=== PATIENT | female | born 1985 | race Caucasian/White ===

== ENCOUNTER 2016-06-03 07:52 | Emergency (ER) | payer MEDICAID, OTHER ==
[~2016-06-03] VITALS: Ht 165.1 cm; Wt 85.0 kg
[~2016-06-03 07:52] MED LIST: IBUP600 PO; IRON18TA2 PO; OXYC1SOL5 PO; PREN1TAB30 PO
[2016-06-03 07:54] VITALS: BP 124/87; PULSE 96; RESP 20; TEMP 98.2; O2SAT 99
[2016-06-03 10:09] VITALS: BP 119/80; PULSE 88; RESP 18; O2SAT 99
[2016-06-03] MEDS ORDERED: SODIUM CHLORIDE 0.9% FLUSH 5 ML FLUSH IVF PRN (10:15)
[2016-06-03] MEDS ORDERED: MORPHINE SULFATE 4 MG/ML INJ IV PUSH ONE (10:15)
[2016-06-03] MEDS ORDERED: ONDANSETRON HCL 4 MG/2 ML VIAL IVP ONE (10:15)
[2016-06-03] MEDS ORDERED: KETOROLAC TROMETHAMINE 30 MG/ML (IVP) VIAL IVP ONE (10:15)
[2016-06-03 10:20] VITALS: RESP 18; O2SAT 100
[2016-06-03 10:59] LABS: BACTERIA, URINE FEW /hpf; BLOOD, URINE SMALL (NEG); COMMENT (UR) CULTURE INDICATED; CULTURE IF INDICATED CULTURE INDICATED; GLUCOSE,URINE NEG (NEG); HYALINE CAST, URINE 1 /lpf (RARE); KETONE, URINE NEG (NEG); MUCUS URINE FEW /lpf (OCC); NITRITE,URINE NEG (NEG); SQUAMOUS EPITHELIAL CELL URINE 5 /hpf (0-5); URINE COLOR YELLOW (YELLW/STRAW)
[2016-06-03] MEDS ORDERED: cefTRIAXone INJ 1,000 MG in SODIUM CHLORIDE 0.9% INJ 100 ML IV ONE (11:15)
--- NOTE | 2016-06-03 11:16 | RADRPT ---
EXAM DATE/TIME: 06/03/2016 10:47 [facility] COMPARISON: No previous studies available for comparison. INDICATIONS : Bilateral flank pain. ORAL CONTRAST: No oral contrast ingested. RADIATION DOSE: 26.11 CTDIvol (mGy) MEDICAL HISTORY : Gallstones. SURGICAL HISTORY : None. ENCOUNTER: Initial ACUITY: 2 days PAIN SCALE: 6/10 LOCATION: Bilateral flank TECHNIQUE: Volumetric scanning of the abdomen and pelvis was performed. Using automated exposure control and ad justment of the mA and/or kV according to patient size, radiation dose was kept as low as reasonably achievable to obtain optimal diagnostic quality images. FINDINGS: The lung bases are clear. The liver is free of focal defects. Spleen, pancreas and adrenal glands a re unremarkable. There are no renal calculi. There are no calcifications along the expected course of either the right ureter or the left ureter. Multiple phleboliths are present in the pelvis. Region of the cecum and terminal ileum are unremarkable. There is a normal appearing appendix. Pelvic contents show a somewhat prominent presumably fibroid uterus. There is trace fluid in the pel vis. CONCLUSION: 1. Negative for renal stone or obstruction. 2. Trace fluid in the pelvis. 3. Fibroid uterus without adnexal mass. Derrell Roche MD FACR on June 03, 2016 at 11:02 Board Certified Radiologist. This report was verified electronically.
[2016-06-03 11:24] VITALS: BP 115/80; PULSE 71; RESP 18; O2SAT 100
[2016-06-03] MEDS ORDERED: PROM25TA5 PO (11:31)
[2016-06-03] MEDS ORDERED: CEPH-460 PO (11:31)
[2016-06-03] MEDS ORDERED: PYRI200T4 PO (11:31)
--- NOTE | 2016-06-03 11:31 | PD ---
HPI Chief Complaint: Flank/Kidney Pain Time Seen by Provider: 10:06 Travel History International Travel<30 days: No Contact w/Intl Traveler<30days: No Traveled to known affect area: No History of Present Illness HPI 31-year-old female here with complaint of flank pain. For the last 2 days patient has had bilateral flank pain, left greater than right that radiates slightly into the abdomen. Associated nausea but no significant vomiting. Denies any abnormal bowel movements. Her last nausea. Was approximately one month ago, she does not believe she could be . No abnormal vaginal bleeding or discharge. She notes dysuria at the end stream and small-volume frequent urination. No history of ureterolithiasis, pyelonephritis. No fevers or chills. PFSH Past Medical History Anemia: Yes Gastrointestinal Disorders: Yes (gallstones) Influenza Vaccination: Yes ?: Not : 6 Para: 5 Miscarriage: 0 : 0 Social History Alcohol Use: No Tobacco Use: No Substance Use: No Allergies-Medications (Allergen,Severity, Reaction): Coded Allergies: No Known Allergies (Unverified , 07/30/14) Reported Meds & Prescriptions Reported Meds & Active Scripts Active Oxycodone/Acetaminophen 5 mg/325 mg 1 Tab Tab 1 Tab PO Q4H PRN Motrin 600 Mg Tab (Ibuprofen) 600 Mg Tab 600 Mg PO Q6H PRN Vitamins ( Vit W/ Ferrous Fumara) 1 Tab Tab 1 Tab PO DAILY Reported Iron (Ferrous Sulfate) 18 Mg Tab 18 Mg PO Review of Systems Except as stated in HPI: all other systems reviewed are Neg Physical Exam Narrative GENERAL: Well-appearing female in mild distress SKIN: Warm and dry. HEAD: Normocephalic. EYES: No scleral icterus. No injection or drainage. ENT: Mucous membranes pink and moist. NECK: Supple CARDIOVASCULAR: Regular rate and rhythm. No murmur appreciated. RESPIRATORY: No accessory muscle use. Clear to auscultation. Breath sounds equal bilaterally. GASTROINTESTINAL: Abdomen soft, left-sided flank tenderness to palpation without rebound or guarding. Abdomen is nontender, nondistended. MUSCULOSKELETAL: Normal gait NEUROLOGICAL: Awake and alert. Normal speech. PSYCHIATRIC: Appropriate mood and affect; insight and judgment normal. Data Data Last Documented VS Vital Signs Date Time Temp Pulse Resp B/P Pulse Ox O2 Delivery O2 Flow Rate FiO2 06/03/16 11:24 71 18 115/80 100 Room Air 06/03/16 07:54 98.2 Orders Urinalysis - C+S If Indicated (06/03/16 09:59) Ct Abd/Pel W/O Iv Contrast (06/03/16 10:09) Iv Access Insert/Monitor (06/03/16 10:09) Ecg Monitoring (06/03/16 10:09) Oximetry (06/03/16 10:09) Morphine Inj (Morphine Inj) (06/03/16 10:15) Ondansetron Inj (Zofran Inj) (06/03/16 10:15) Sodium Chloride 0.9% Flush (Ns Flush) (06/03/16 10:15) Ketorolac Inj (Toradol Inj) (06/03/16 10:15) Ed Urine Pregnancytest Poc (06/03/16 10:09) Urine Culture (06/03/16 10:04) Ceftriaxone Inj (Rocephin Inj) (06/03/16 11:15) Labs Laboratory Tests Test 06/03/16 10:04 Urine Color YELLOW Urine Turbidity HAZY Urine pH 7.0 Urine Specific [place] 1.016 Urine Protein TRACE mg/dL Urine Glucose (UA) NEG mg/dL Urine Ketones NEG mg/dL Urine Occult Blood SMALL Urine Nitrite NEG Urine Bilirubin NEG Urine Urobilinogen LESS THAN 2.0 MG/DL Urine Leukocyte Esterase LARGE Urine RBC 11 /hpf Urine WBC 148 /hpf Urine Squamous Epithelial 5 /hpf Cells Urine Bacteria FEW /hpf Urine Hyaline Casts 1 /lpf Urine Mucus FEW /lpf Microscopic Urinalysis Comment CULTURE INDICATED MDM Medical Decision Making Medical Screen Exam Complete: Yes Emergency Medical Condition: Yes Medical Record Reviewed: Yes Differential Diagnosis 31-year-old female with bilateral flank pain, left greater than right radiating to the abdomen with urinary symptoms. Differential includes UTI, pyelonephritis , ureterolithiasis. Her abdominal examination is benign making peritoneal pathology unlikely. Narrative Course Patient placed on monitor, IV established. Given 4 mg morphine, 4 mg Zofran. Urine test was negative. Urinalysis positive with leukocyte esterase , white cells and bacteria. CT of the abdomen and pelvis was negative for any evidence of stone, free fluid. She does have fibroid uterus without adnexal mass. Given her dirty urinalysis she was treated with Rocephin for pyelonephritis only discharged home with flex. Diagnosis Primary Impression: Pyelonephritis Referrals: Primary Care Physician as needed Additional Instructions: Pyridium as needed for urinary pain. Finish antibiotics as prescribed. Antiemetics as needed. Follow-up with primary care provider if symptoms persist and return to the ER for the warning signs discussed. Med/Other Pt SpecificInfo: Prescription(s) given Scripts Promethazine (Phenergan)25 Mg Tab25 Mg PO Q6H PRN (Nausea/Vomiting) #6 TAB Ref 0 Prov:Belle Rosado MD 06/03/16 Phenazopyridine (Pyridium)200 Mg [id number] Mg PO Q8H PRN (DYSURIA) #6 TAB Ref 0 Prov:Belle Rosado MD 06/03/16 Cephalexin (Keflex)500 Mg [id number] Mg PO Q6H 7 Days Ref 0 Prov:Belle Rosado MD 06/03/16 Disposition: 01 DISCHARGE HOME Condition: Stable Belle Rosado MD Jun 03, 2016 11:31
[2016-06-03] MEDS ORDERED: LIDOCAINE VISCOUS 2% SOLN 15 ML UDC PO ONE (11:45)
[2016-06-03] MEDS ORDERED: ALUMINUM/MAGNESIUM/SIMETH 30 ML CUP PO ONE (11:45)
== END 2016-06-03 11:33 | disposition home or self-care (01) ==
LOC: NEPE 07:52
DX: N12 Tubulo-interstitial nephritis, not specified as acute or chronic (principal); D64.9 Anemia, unspecified; B95.7 Other staphylococcus as the cause of diseases classified elsewhere
CPT/HCPCS: 74176; 81001; 84703; 86403; 87077; 87086; 87186; 96374; 96375; 99284; J0696; J1885; J2270; J2405

== ENCOUNTER 2016-08-10 13:10 | Emergency (ER) | payer MEDICAID, OTHER ==
[~2016-08-10] VITALS: Ht 165.1 cm; Wt 85.0 kg
[~2016-08-10 13:10] MED LIST changes: +CEPH-460 PO; +PROM25TA5 PO; +PYRI200T4 PO
[2016-08-10 13:12] VITALS: BP 123/88; PULSE 80; RESP 20; TEMP 98; O2SAT 99
[2016-08-10] MEDS ORDERED: ACETAMINOPHEN 325 MG TAB PO ONE (13:45)
[2016-08-10] MEDS ORDERED: ALPRAZolam 1 MG TAB PO ONE (13:45)
--- NOTE | 2016-08-10 13:46 | PD ---
HPI Chief Complaint: Anxiety Time Seen by Provider: 13:35 Travel History International Travel<30 days: No Contact w/Intl Traveler<30days: No Traveled to known affect area: No History of Present Illness HPI 31-year-old female with history of anxiety presents for evaluation. She reports that yesterday her mother's life support mechanisms were discontinued and today her mother . The entire incident has been causing the patient a lot of stress and anxiety. Since yesterday she is having some sharp left-sided chest pain as well as headaches. Symptoms seem to be worse when she is crying and upset and anxious. No alleviating factors. She denies any desire to harm herself or anyone else. No drug use. She reports that several years ago she was treated with a medication for anxiety but ever since she went to [place] she has not been on any medications help with her anxiety symptoms. She has no other complaints. PFSH Past Medical History Anemia: Yes Asthma: Yes Gastrointestinal Disorders: Yes (gallstones) Respiratory: Yes (ASTHMA) ?: Not LMP: 08/08/16 : 6 Para: 5 Miscarriage: 0 : 0 Social History Alcohol Use: No Tobacco Use: No Substance Use: No Allergies-Medications (Allergen,Severity, Reaction): Coded Allergies: No Known Allergies (Unverified , 08/10/16) Reported Meds & Prescriptions Reported Meds & Active Scripts Active Xanax (Alprazolam) 0.5 Mg Tab 0.5 Mg PO Q8H PRN Phenergan (Promethazine HCl) 25 Mg Tab 25 Mg PO Q6H PRN Pyridium (Phenazopyridine HCl) 200 Mg Tab 200 Mg PO Q8H PRN Keflex (Cephalexin) 500 Mg Cap 500 Mg PO Q6H 7 Days Oxycodone/Acetaminophen 5-325 mg/5Ml (Oxycodone W/ Acetaminophen) 1 Tab Tab 1 Tab PO Q4H PRN Motrin 600 Mg Tab (Ibuprofen) 600 Mg Tab 600 Mg PO Q6H PRN Vitamin 27-0.8 mg ( Vit W/ Ferrous Fumara) 1 Tab Tab 1 Tab PO DAILY Reported Iron (Ferrous Sulfate) 18 Mg Tab 18 Mg PO Review of Systems Except as stated in HPI: all other systems reviewed are Neg Physical Exam Narrative GENERAL: This is a well-developed well-nourished female who is anxious and tearful on initial examination. SKIN: Warm and dry. HEAD: Atraumatic. Normocephalic. EYES: Pupils equal and round. No scleral icterus. No injection or drainage. ENT: No nasal bleeding or discharge. Mucous membranes pink and moist. NECK: Trachea midline. No JVD. CARDIOVASCULAR: Regular rate and rhythm. No murmur appreciated. RESPIRATORY: No accessory muscle use. Clear to auscultation. Breath sounds equal bilaterally. GASTROINTESTINAL: Abdomen soft, non-tender, nondistended. Hepatic and splenic margins not palpable. MUSCULOSKELETAL: No obvious deformities. No edema. NEUROLOGICAL: Awake and alert. No obvious cranial nerve deficits. Motor grossly within normal limits. Normal speech. PSYCHIATRIC: Anxious, tearful. Data Data Last Documented VS Vital Signs Date Time Temp Pulse Resp B/P Pulse Ox O2 Delivery O2 Flow Rate FiO2 08/10/16 13:12 98.0 80 20 123/88 99 Room Air Orders Electrocardiogram (08/10/16 13:42) Basic Metabolic Panel (Bmp) (08/10/16 13:42) Ckmb (Isoenzyme) Profile (08/10/16 13:42) Complete Blood Count With Diff (08/10/16 13:42) Magnesium (Mg) (08/10/16 13:42) Troponin I (08/10/16 13:42) Chest, Single Ap (08/10/16 13:42) Acetaminophen (Tylenol) (08/10/16 13:45) Alprazolam (Xanax) (08/10/16 13:45) Labs Laboratory Tests Test 08/10/16 13:05 White Blood Count 4.4 TH/MM3 Red Blood Count 4.00 MIL/MM3 Hemoglobin 11.0 GM/DL Hematocrit 34.6 % Mean Corpuscular Volume 86.7 FL Mean Corpuscular Hemoglobin 27.6 PG Mean Corpuscular Hemoglobin 31.9 % Concent Red Cell Distribution Width 13.9 % Platelet Count 187 TH/MM3 Mean Platelet Volume 10.0 FL Neutrophils (%) (Auto) 56.7 % Lymphocytes (%) (Auto) 24.0 % Monocytes (%) (Auto) 11.7 % Eosinophils (%) (Auto) 7.0 % Basophils (%) (Auto) 0.6 % Neutrophils # (Auto) 2.5 TH/MM3 Lymphocytes # (Auto) 1.1 TH/MM3 Monocytes # (Auto) 0.5 TH/MM3 Eosinophils # (Auto) 0.3 TH/MM3 Basophils # (Auto) 0.0 TH/MM3 CBC Comment DIFF FINAL Differential Comment Sodium Level 140 MEQ/L Potassium Level 4.0 MEQ/L Chloride Level 105 MEQ/L Carbon Dioxide Level 27.8 MEQ/L Anion Gap 7 MEQ/L Blood Urea Nitrogen 12 MG/DL Creatinine 0.62 MG/DL Estimat Glomerular Filtration 112 ML/MIN Rate Random Glucose 98 MG/DL Calcium Level 8.4 MG/DL Magnesium Level 2.0 MG/DL Total Creatine Kinase 85 U/L Troponin I LESS THAN 0.02 NG/ML MDM Medical Decision Making Medical Screen Exam Complete: Yes Emergency Medical Condition: Yes Medical Record Reviewed: Yes Interpretation(s) EKG sinus rhythm Differential Diagnosis Adjustment reaction, anxiety, panic disorder, pulmonary embolism, acute coronary syndrome, spontaneous pneumothorax Narrative Course This is a 31-year-old female whose mother today. She is experiencing severe anxiety with associated chest pains and headache. I feel that her symptoms are secondary to her anxiety. She is otherwise young and healthy woman with no risk factors for coronary artery disease. Plan is for basic lab work, EKG, chest x-ray. She will be given Xanax and Tylenol here. She is currently on her menstrual period and denies any chance of . Lab work is unremarkable. Her hemoglobin was 11 which is in line with her previous hemoglobin levels. Cardiac enzymes are negative. She feels improved after the administration of Tylenol and Xanax. She will be discharged with a short course of Xanax and advised to follow-up with her primary care physician. Discussed with my attending who agrees with plan of care. Diagnosis Primary Impression: Anxiety Additional Impression: Grieving Additional Instructions: Medication as needed for anxiety. Follow closely with primary care physician. Return for any emergent medical conditions. Med/Other Pt SpecificInfo: Prescription(s) given Scripts Alprazolam (Xanax)0.5 Mg Tab0.5 Mg PO Q8H PRN (ANXIETY) #12 TAB Ref 0 Prov:Sean Grant MD 08/10/16 Disposition: 01 DISCHARGE HOME Condition: Stable Stanley Giordano Aug 10, 2016 13:46
[2016-08-10] MEDS ORDERED: ALPR.5 PO (14:18)
--- NOTE | 2016-08-10 14:21 | RADRPT ---
EXAM DATE/TIME: 08/10/2016 14:00 [facility] COMPARISON: No previous studies available for comparison. INDICATIONS : Chest pain MEDICAL HISTORY : SURGICAL HISTORY : None. ENCOUNTER: Initial ACUITY: 1 day PAIN SCORE: 3/10 LOCATION: chest FINDINGS: A single view of the chest demonstrates the lungs to be symmetrically aerated without evidence of mas s, infiltrate or effusion. The cardiomediastinal contours are unremarkable. Osseous structures are intact. CONCLUSION: Normal examination. Eugene Lopez Jr., MD on August 10, 2016 at 14:19 Board Certified Radiologist. This report was verified electronically.
[2016-08-10 14:23] LABS: AUTOMATED NEUTROPHIL # 2.5 TH/MM3 (1.8-7.7); BASOPHIL % 0.6 % (0.0-2.0); EOSINOPHIL # 0.3 TH/MM3 (0-0.4); HEMATOCRIT 34.6 % (35.0-46.0); HEMO FLAGS DIFF FINAL; LYMPHOCYTE # 1.1 TH/MM3 (1.0-4.8); MEAN CELL VOLUME 86.7 FL (80.0-100.0); MEAN CORPUSCULAR HEMOGLOBIN 27.6 PG (27.0-34.0); MEAN CORPUSCULAR HGB CONC 31.9 % (32.0-36.0); MONO % 11.7 % (0.0-8.0); NEUT % 56.7 % (16.0-70.0); PLATELET COUNT 187 TH/MM3 (150-450); RED CELL DISTRIBUTION WIDTH 13.9 % (11.6-17.2); WHITE BLOOD COUNT 4.4 TH/MM3 (4.0-11.0)
[2016-08-10 14:35] LABS: ANION GAP 7 MEQ/L (5-15); BICARBONATE 27.8 MEQ/L (21.0-32.0); BLOOD UREA NITROGEN 12 MG/DL (7-18); CHLORIDE 105 MEQ/L (98-107); GLOMERULAR FILTRATION RATE 112 ML/MIN (>89); SODIUM (NA) 140 MEQ/L (136-145)
[2016-08-10 14:47] LABS: CREATINE KINASE 85 U/L (26-192)
--- NOTE | 2016-08-11 14:57 | EKG ---
Date Performed: 08/10/2016 Time Performed: 14:15:45 PTAGE: 31 years EKG: Sinus rhythm NORMAL ECG NO PREVIOUS TRACING DOCTOR: Daiana Payne Interpretating Date/Time 08/11/2016 14:53:03
== END 2016-08-10 15:15 | disposition home or self-care (01) ==
LOC: NETRI 13:10
DX: F41.9 Anxiety disorder, unspecified (principal); F43.21 Adjustment disorder with depressed mood; R07.89 Other chest pain; R51 Headache; Z86.2 Personal history of diseases of the blood and blood-forming organs and certain disorders involving the immune mechanism; Z87.09 Personal history of other diseases of the respiratory system; Z87.19 Personal history of other diseases of the digestive system
CPT/HCPCS: 71010; 80048; 82550; 83735; 84484; 85025; 93005

== ENCOUNTER 2016-09-30 00:18 | Emergency (ER) | payer MEDICAID, OTHER ==
[~2016-09-30] VITALS: Ht 165.1 cm; Wt 85.0 kg
[~2016-09-30 00:18] MED LIST changes: +ALPR.5 PO
[2016-09-30 00:22] VITALS: BP 131/76; PULSE 80; RESP 16; TEMP 98.7; O2SAT 100
[2016-09-30 01:43] LABS: AUTOMATED NEUTROPHIL # 4.3 TH/MM3 (1.8-7.7); BASOPHIL % 0.4 % (0.0-2.0); EOSINOPHIL # 0.3 TH/MM3 (0-0.4); EOSINOPHIL % 4.6 % (0.0-4.0); HEMATOCRIT 36.3 % (35.0-46.0); HEMO FLAGS DIFF FINAL; LYMPH % 24.2 % (9.0-44.0); LYMPHOCYTE # 1.7 TH/MM3 (1.0-4.8); MEAN CELL VOLUME 84.9 FL (80.0-100.0); MEAN CORPUSCULAR HEMOGLOBIN 28.5 PG (27.0-34.0); MEAN CORPUSCULAR HGB CONC 33.6 % (32.0-36.0); MONO % 8.1 % (0.0-8.0); NEUT % 62.7 % (16.0-70.0); PLATELET COUNT 176 TH/MM3 (150-450); RED BLOOD COUNT 4.27 MIL/MM3 (4.00-5.30); RED CELL DISTRIBUTION WIDTH 13.7 % (11.6-17.2); WHITE BLOOD COUNT 6.9 TH/MM3 (4.0-11.0)
--- NOTE | 2016-09-30 01:47 | PD ---
HPI Chief Complaint: GI Complaint Time Seen by Provider: 01:11 Travel History International Travel<30 days: No Contact w/Intl Traveler<30days: No Traveled to known affect area: No History of Present Illness HPI Is a 31-year-old woman presents emergent [place] of lower abdominal pain. She had a positive test at home. She's been having lower abdominal pain daily for the past 3 days. She states been intermittent. She's had some morning sickness with vomiting as well. She's also had some headache. Last menstrual period was August 11, putting her at 7 weeks 1 day by dates. She is 7 para 6, 0, 0, 6. She otherwise had been feeling generally well and healthy. No urinary symptoms. No vaginal bleeding or vaginal discharge. No other complaints. History Past Medical History Narrative Medical Asthma LMP: AUGUST 11, 2016 : 6 Para: 6 Social History Alcohol Use: No Tobacco Use: No Allergies-Medications (Allergen,Severity, Reaction): Coded Allergies: No Known Allergies (Unverified , 08/10/16) Reported Meds & Prescriptions Reported Meds & Active Scripts Active Xanax (Alprazolam) 0.5 Mg Tab 0.5 Mg PO Q8H PRN Phenergan (Promethazine HCl) 25 Mg Tab 25 Mg PO Q6H PRN Pyridium (Phenazopyridine HCl) 200 Mg Tab 200 Mg PO Q8H PRN Keflex (Cephalexin) 500 Mg Cap 500 Mg PO Q6H 7 Days Oxycodone/Acetaminophen 5-325 mg/5Ml (Oxycodone W/ Acetaminophen) 1 Tab Tab 1 Tab PO Q4H PRN Motrin 600 Mg Tab (Ibuprofen) 600 Mg Tab 600 Mg PO Q6H PRN Vitamin 27-0.8 mg ( Vit W/ Ferrous Fumara) 1 Tab Tab 1 Tab PO DAILY Reported Iron (Ferrous Sulfate) 18 Mg Tab 18 Mg PO Review of Systems Except as stated in HPI: all other systems reviewed are Neg Physical Exam Narrative GENERAL: Well-appearing 31-year-old woman, no acute distress. SKIN: Focused skin assessment warm/dry. NECK: Trachea midline. No JVD. CARDIOVASCULAR: Regular rate and rhythm. No murmur appreciated. RESPIRATORY: No accessory muscle use. Clear to auscultation. Breath sounds equal bilaterally. GASTROINTESTINAL: Normal contour and appearance. Abdomen is soft. Mild right upper quadrant tenderness. No rebound or guarding. MUSCULOSKELETAL: No obvious deformities. No clubbing. No cyanosis. No edema. NEUROLOGICAL: Awake and alert. No obvious cranial nerve deficits. Motor grossly within normal limits. Normal speech. PSYCHIATRIC: Appropriate mood and affect; insight and judgment normal. Data Data Last Documented VS Vital Signs Date Time Temp Pulse Resp B/P Pulse Ox O2 Delivery O2 Flow Rate FiO2 09/30/16 00:22 98.7 80 16 131/76 100 Room Air Orders Ed Urine Pregnancytest Poc (09/30/16 00:47) Complete Blood Count With Diff (09/30/16 01:20) Comprehensive Metabolic Panel (09/30/16 01:20) Beta Hcg (Quant/Titer) (09/30/16 01:20) Urinalysis - C+S If Indicated (09/30/16 01:20) Ed Poc Ultrasound (09/30/16 ) Labs Laboratory Tests Test 09/30/16 01:35 White Blood Count 6.9 TH/MM3 Red Blood Count 4.27 MIL/MM3 Hemoglobin 12.2 GM/DL Hematocrit 36.3 % Mean Corpuscular Volume 84.9 FL Mean Corpuscular Hemoglobin 28.5 PG Mean Corpuscular Hemoglobin 33.6 % Concent Red Cell Distribution Width 13.7 % Platelet Count 176 TH/MM3 Mean Platelet Volume 10.4 FL Neutrophils (%) (Auto) 62.7 % Lymphocytes (%) (Auto) 24.2 % Monocytes (%) (Auto) 8.1 % Eosinophils (%) (Auto) 4.6 % Basophils (%) (Auto) 0.4 % Neutrophils # (Auto) 4.3 TH/MM3 Lymphocytes # (Auto) 1.7 TH/MM3 Monocytes # (Auto) 0.6 TH/MM3 Eosinophils # (Auto) 0.3 TH/MM3 Basophils # (Auto) 0.0 TH/MM3 CBC Comment DIFF FINAL Differential Comment Urine Color YELLOW Urine Turbidity CLEAR Urine pH 6.0 Urine Specific [place] 1.030 Urine Protein TRACE mg/dL Urine Glucose (UA) NEG mg/dL Urine Ketones NEG mg/dL Urine Occult Blood TRACE Urine Nitrite NEG Urine Bilirubin NEG Urine Urobilinogen LESS THAN 2.0 MG/DL Urine Leukocyte Esterase NEG Urine RBC 4 /hpf Urine WBC LESS THAN 1 /hpf Urine Squamous Epithelial 4 /hpf Cells Urine Hyaline Casts 1 /lpf Urine Mucus MANY /lpf Microscopic Urinalysis Comment CULT NOT INDICATED Sodium Level 138 MEQ/L Potassium Level 3.8 MEQ/L Chloride Level 103 MEQ/L Carbon Dioxide Level 25.6 MEQ/L Anion Gap 9 MEQ/L Blood Urea Nitrogen 13 MG/DL Creatinine 0.62 MG/DL Estimat Glomerular Filtration 112 ML/MIN Rate Random Glucose 87 MG/DL Calcium Level 8.9 MG/DL Total Bilirubin 0.3 MG/DL Aspartate Amino Transf 30 U/L (AST/SGOT) Alanine Aminotransferase 93 U/L (ALT/SGPT) Alkaline Phosphatase 66 U/L Total Protein 8.2 GM/DL Albumin 4.0 GM/DL Human Chorionic Gonadotropin, [address] MIU/ML Quant MDM Medical Decision Making Medical Screen Exam Complete: Yes Emergency Medical Condition: Yes Interpretation(s) LABS: CBC unremarkable. CMP unremarkable except for mildly elevated ALT HCG 28,000 UA unremarkable Differential Diagnosis , ectopic , UTI, hepatobiliary disease, other Narrative Course Medical decision making INITIAL: This a 31-year-old woman presents to the emergency department complaining of lower abdominal pain. She has little bit of right upper quadrant discomfort. She looks well. She's . We'll check labs, beta, one a care ultrasound, likely discharge and outpatient follow-up. Procedures Procedure Narrative Point of care ultrasound: Focus transabdominal ultrasounds performed by me at the bedside for the purpose evaluate for possible IUP. Intrauterine is identified, early, which he'll sac and possible pole seen. Diagnosis Primary Impression: Intrauterine Additional Instructions: Continue vitamins. Follow-up with the barn operator at the first available appointment. Return to the emergency department for any new or worsening symptoms. Med/Other Pt SpecificInfo: No Change to Meds Disposition: 01 DISCHARGE HOME Condition: Stable Jaison Ortiz MD September 30, 2016 01:47
[2016-09-30 01:51] LABS: BLOOD, URINE TRACE (NEG); COMMENT (UR) CULT NOT INDICATED; CULTURE IF INDICATED CULT NOT INDICATED; GLUCOSE,URINE NEG (NEG); HYALINE CAST, URINE 1 /lpf (RARE); KETONE, URINE NEG (NEG); MUCUS URINE MANY /lpf (OCC); NITRITE,URINE NEG (NEG); SQUAMOUS EPITHELIAL CELL URINE 4 /hpf (0-5); URINE COLOR YELLOW (YELLW/STRAW)
[2016-09-30 02:35] LABS: ALT (GPT) 93 U/L (10-53); ANION GAP 9 MEQ/L (5-15); AST (GOT) 30 U/L (15-37); BICARBONATE 25.6 MEQ/L (21.0-32.0); BLOOD UREA NITROGEN 13 MG/DL (7-18); CHLORIDE 103 MEQ/L (98-107); GLOMERULAR FILTRATION RATE 112 ML/MIN (>89); POTASSIUM 3.8 MEQ/L (3.5-5.1); SODIUM (NA) 138 MEQ/L (136-145)
[2016-09-30 02:52] LABS: ALKALINE PHOSPHATASE 66 U/L (45-117); BETA HCG QUANT 28151 MIU/ML (0-5); TOTAL BILIRUBIN ADULT 0.3 MG/DL (0.2-1.0)
== END 2016-09-30 03:15 | disposition home or self-care (01) ==
LOC: NEPC 00:18
DX: O26.891 Other specified pregnancy related conditions, first trimester (principal); R11.2 Nausea with vomiting, unspecified; R10.30 Lower abdominal pain, unspecified; R51 Headache; J45.909 Unspecified asthma, uncomplicated; Z3A.01 Less than 8 weeks gestation of pregnancy
CPT/HCPCS: 80053; 81001; 84702; 84703; 85025; 99284

== ENCOUNTER 2017-04-15 12:23 | Emergency (ER) | payer MEDICAID, OTHER ==
[~2017-04-15] VITALS: Ht 162.6 cm; Wt 92.5 kg
[2017-04-15 12:25] VITALS: BP 137/64; PULSE 84; RESP 20; TEMP 97.8; O2SAT 100
[2017-04-15] MEDS ORDERED: SODIUM CHLOR 0.9% 1000 ML INJ 1,000 ML IV ONE (12:49)
--- NOTE | 2017-04-15 12:59 | PD ---
HPI Chief Complaint: Related Problem Time Seen by Provider: 12:45 Travel History International Travel<30 days: No Contact w/Intl Traveler<30days: No Traveled to known affect area: No History of Present Illness HPI This is a who reports that she is 8 months gestational age. She presents for evaluation of headache. Symptoms started 2 hours ago. She describes it as a frontal pulsating headache with associated nausea, photophobia. She reports a history of migraines in the past and this feels consistent with her previous migraines. She does endorse a little bit of nasal congestion over the past few days. Denies cough, chest pain or shortness of breath, blurred vision, abdominal pain, vaginal bleeding, lower extremity edema. She has no other complaints at this time. [facility] Past Medical History Anemia: Yes Asthma: Yes Gastrointestinal Disorders: Yes (gallstones) Respiratory: Yes (ASTHMA) Immunizations Current: Yes ?: LMP: 8 months : 6 Para: 6 Miscarriage: 0 : 0 Past Surgical History Abdominal Surgery: Yes Social History Alcohol Use: No Tobacco Use: No Substance Use: No Allergies-Medications (Allergen,Severity, Reaction): Coded Allergies: No Known Allergies (Unverified Adverse Reaction, Unknown, 04/15/17) Reported Meds & Prescriptions Reported Meds & Active Scripts Active Reported Plus Iron 29-1 mg ( Vit-Iron Carbonyl) 29 Mg Iron-1 Mg Tab 1 Tab PO DAILY Flintstones Complete (Iron/Minerals/Multivitamins) 60 Mg Tab 1 Tab CHEW DAILY Review of Systems Except as stated in HPI: all other systems reviewed are Neg Physical Exam Narrative GENERAL: Well-developed well-nourished female in no acute distress SKIN: Warm and dry. HEAD: Atraumatic. Normocephalic. EYES: Pupils equal and round. No scleral icterus. No injection or drainage. ENT: No nasal bleeding or discharge. Mucous membranes pink and moist. NECK: Trachea midline. No JVD. CARDIOVASCULAR: Regular rate and rhythm. No murmur appreciated. RESPIRATORY: No accessory muscle use. Clear to auscultation. Breath sounds equal bilaterally. GASTROINTESTINAL: Abdomen soft, gravid abdomen, nontender. MUSCULOSKELETAL: No obvious deformities. No clubbing. No cyanosis. No edema. NEUROLOGICAL: Awake and alert. No obvious cranial nerve deficits. Motor grossly within normal limits. Normal speech. PSYCHIATRIC: Appropriate mood and affect; insight and judgment normal. Data Data Last Documented VS Vital Signs Date Time Temp Pulse Resp B/P (MAP) Pulse Ox O2 Delivery O2 Flow Rate FiO2 04/15/17 14:35 16 04/15/17 13:47 99 Room Air 04/15/17 12:25 97.8 84 Orders Orders Ecg Monitoring (04/15/17 12:49) Iv Access Insert/Monitor (04/15/17 12:49) Oximetry (04/15/17 12:49) Ondansetron Inj (Zofran Inj) (04/15/17 13:00) Diphenhydramine Inj (Benadryl Inj) (04/15/17 13:00) Sodium Chlor 0.9% 1000 Ml Inj (Ns 1000 M (04/15/17 12:49) Acetaminophen (Tylenol) (04/15/17 13:00) Biug-Rjpcf-Axad 325-50-40 Mg (Fioricet 3 (04/15/17 13:15) Ed Discharge Order (04/15/17 15:24) MDM Medical Decision Making Medical Screen Exam Complete: Yes Emergency Medical Condition: Yes Medical Record Reviewed: Yes Differential Diagnosis Migraine, tension headache, subarachnoid hemorrhage, preeclampsia, pseudotumor cerebri Narrative Course The patient was placed on ECG monitoring pulse oximetry. She was given Fioricet , IV fluids, Benadryl and Zofran. 1523: Upon examination the patient feels significant improvement. She is stable for discharge. Diagnosis Primary Impression: Migraine Qualified Codes: G43.909 - Migraine, unspecified, not intractable, without status migrainosus Additional Instructions: Stay well hydrated and well-nourished. Follow-up close with primary care physician, french comber. Return for any emergent medical conditions. Med/Other Pt SpecificInfo: No Change to Meds Disposition: 01 DISCHARGE HOME Condition: Stable Stanley Giordano Apr 15, 2017 12:59
[2017-04-15] MEDS ORDERED: ACETAMINOPHEN 500 MG CPLT PO ONE (13:00)
[2017-04-15] MEDS ORDERED: ONDANSETRON HCL 4 MG/2 ML VIAL IVP ONE (13:00)
[2017-04-15] MEDS ORDERED: diphenhydrAMINE HCL 50 MG/ML VIAL IVP ONE (13:00)
[2017-04-15] MEDS ORDERED: FLINT2 CHEW (13:08)
[2017-04-15] MEDS ORDERED: PREN29TA PO (13:08)
[2017-04-15] MEDS ORDERED: ACETAMIN 325 MG/BUTALBITAL 50 MG/CAFFEINE 40 MG TAB PO ONE (13:15)
[2017-04-15 13:47] VITALS: O2SAT 99
[2017-04-15 15:25] VITALS: BP 105/64; PULSE 77; RESP 22; O2SAT 99
== END 2017-04-15 16:05 | disposition home or self-care (01) ==
LOC: NEPC 12:23
DX: O26.899 Other specified pregnancy related conditions, unspecified trimester (principal); G43.909 Migraine, unspecified, not intractable, without status migrainosus; D64.9 Anemia, unspecified; J45.909 Unspecified asthma, uncomplicated; Z79.899 Other long term (current) drug therapy
CPT/HCPCS: 96361; 96374; 96375; 99284; J1200; J2405; J7030

== ENCOUNTER 2017-11-06 01:40 | Emergency (ER) | payer MEDICAID ==
[~2017-11-06] VITALS: Ht 165.1 cm; Wt 85.0 kg
[~2017-11-06 01:40] MED LIST changes: -ALPR.5 PO; -CEPH-460 PO; +FLINT2 CHEW; -IBUP600 PO; -IRON18TA2 PO; -OXYC1SOL5 PO; -PREN1TAB30 PO; +PREN29TA PO; -PROM25TA5 PO; -PYRI200T4 PO
[2017-11-06 01:51] VITALS: BP 141/82; PULSE 71; RESP 18; TEMP 97.8; O2SAT 100
[2017-11-06 02:34] LABS: AUTOMATED NEUTROPHIL # 3.8 TH/MM3 (1.8-7.7); BASOPHIL % 0.7 % (0.0-2.0); EOSINOPHIL # 0.4 TH/MM3 (0-0.4); EOSINOPHIL % 5.4 % (0.0-4.0); HEMATOCRIT 35.5 % (35.0-46.0); HEMOGLOBIN 11.8 GM/DL (11.6-15.3); LYMPH % 27.8 % (9.0-44.0); LYMPHOCYTE # 1.9 TH/MM3 (1.0-4.8); MEAN CELL VOLUME 87.2 FL (80.0-100.0); MEAN CORPUSCULAR HEMOGLOBIN 28.9 PG (27.0-34.0); MEAN CORPUSCULAR HGB CONC 33.2 % (32.0-36.0); MEAN PLATELET VOLUME 9.9 FL (7.0-11.0); MONO % 10.4 % (0.0-8.0); MONOCYTE # 0.7 TH/MM3 (0-0.9); NEUT % 55.7 % (16.0-70.0); PLATELET COUNT 184 TH/MM3 (150-450); RED BLOOD COUNT 4.07 MIL/MM3 (4.00-5.30); RED CELL DISTRIBUTION WIDTH 13.3 % (11.6-17.2); WHITE BLOOD COUNT 6.9 TH/MM3 (4.0-11.0)
[2017-11-06 02:44] LABS: BICARBONATE 27.8 MEQ/L (21.0-32.0); BLOOD UREA NITROGEN 18 MG/DL (7-18); CALCIUM 8.1 MG/DL (8.5-10.1); CHLORIDE 107 MEQ/L (98-107); CREATININE 0.86 MG/DL (0.50-1.00); GLOMERULAR FILTRATION RATE 76 ML/MIN (>89); GLUCOSE,RANDOM 89 MG/DL (74-106); SODIUM (NA) 142 MEQ/L (136-145)
[2017-11-06 02:47] LABS: TROPONIN I LESS THAN 0.02 NG/ML (0.02-0.05)
--- NOTE | 2017-11-06 02:54 | RADRPT ---
EXAM DATE: 11/06/2017 2:35 AM EDT AGE/SEX: 32 years / Female INDICATIONS: Chest pain. CLINICAL DATA: This is the patient's initial encounter. Patient reports that signs and symptoms have been present for 1 day and indicates a pain score of 0/10. MEDICAL/SURGICAL HISTORY: None. None. COMPARISON: No prior exams available for comparison. FINDINGS: PA and lateral views of the chest. The lungs are clear. Cardiomediastinal silhouette with in normal limits. No evidence of pleural effusion or pneumothorax. Surgical clips in the upper abdom en on the lateral view. CONCLUSION: No acute cardiopulmonary disease identified. Electronically signed by: Dakota Fuentes MD 11/06/2017 2:52 AM EDT
[2017-11-06 03:49] VITALS: BP 135/70; PULSE 73; RESP 18; O2SAT 100
[2017-11-06] MEDS ORDERED: IBUPROFEN 400 MG TAB PO ONE (04:30)
--- NOTE | 2017-11-06 04:48 | PD ---
HPI Chief Complaint: Chest Pain Time Seen by Provider: 03:55 Travel History International Travel<30 days: No Contact w/Intl Traveler<30days: No Traveled to known affect area: No History of Present Illness HPI The patient is a 32 year old female who presents to the [facility] emergency department with a history of left upper chest pain near her shoulder that she reports began 2 days ago. She reports that the pain is been coming and going. She reports that it is aggravated by taking a deep breath or moving her left arm. The patient reports that the pain radiates into the left shoulder and left upper trapezius muscle. She denies having any shortness of breath, nausea, vomiting, or diaphoresis associated with this. She denies any prior history of coronary artery disease, hypertension, or diabetes mellitus. She denies any prior history of DVT or PE. She denies having any lower extremity edema, calf pain, or erythema. She does report having a 2-year-old that is overweight at 72 pounds. She reports that she has been having to lift him more frequently. She is right-hand dominant. On review of systems otherwise, she denies recent fevers, cough or congestion, abdominal pain, diarrhea, urinary symptoms, or neurologic symptoms. LMP: 7 days ago [facility] Past Medical History Narrative Medical The patient's past medical history is significant for asthma, gallstones, hypertension in . Anemia: Yes Asthma: Yes Diminished Hearing: No Gastrointestinal Disorders: Yes (gallstones) Respiratory: Yes (ASTHMA) Immunizations Current: Yes Migraines: Yes Tetanus Vaccination: < 5 Years Influenza Vaccination: Yes ?: Not LMP: 10/30/2017 : 7 Para: 6 Miscarriage: 0 : 0 Past Surgical History Narrative Surgical The patient's past surgical history is significant for gallstone removal. Abdominal Surgery: Yes (GALLSTONE REMOVED) Social History Alcohol Use: No Tobacco Use: No Substance Use: No Allergies-Medications (Allergen,Severity, Reaction): Coded Allergies: No Known Allergies (Unverified Adverse Reaction, Unknown, 11/06/17) Reported Meds & Prescriptions Reported Meds & Active Scripts Active Reported Plus Iron 29-1 mg ( Vit-Iron Carbonyl) 29 Mg Iron-1 Mg Tab 1 Tab PO DAILY Flintstones Complete (Iron/Minerals/Multivitamins) 60 Mg Tab 1 Tab CHEW DAILY Review of Systems Except as stated in HPI: all other systems reviewed are Neg General / Constitutional: No: Fever Eyes: No: Visual changes HENT: No: Headaches Cardiovascular: Positive: Chest Pain or Discomfort, No: Dyspnea on exertion Respiratory: No: Shortness of Breath Gastrointestinal: No: Abdominal Pain Genitourinary: No: Dysuria Musculoskeletal: Positive: Myalgias, Pain Skin: No Rash Neurologic: No: Weakness Psychiatric: No: Depression Endocrine: No: Polydipsia Hematologic/Lymphatic: No: Easy Bruising Physical Exam Narrative General: The patient is a well-developed well-nourished female in no acute distress. Head and Neck exam: Head is normocephalic atraumatic. Eyes: EOMI, pupils are equal round and reactive to light. Nose: Midline septum with pink mucous membranes Mouth: Dentition unremarkable. Moist mucus membranes. Posterior oropharynx is not erythematous. No tonsillar hypertrophy. Uvula midline. Airway patent. Neck: No palpable lymphadenopathy. No nuchal rigidity. No thyromegaly. Cardiovascular: Regular rate and rhythm without murmurs, gallops, or rubs. No pulse deficit to the extremities and simultaneous auscultation and palpation of her radial artery. The patient reports chest wall tenderness on palpation of the upper pectoral muscle on the left side which does reproduce some of the patient's pain. There is no step-off or crepitus. No erythema or ecchymosis. No flail chest. Lungs: Clear to auscultation bilaterally. No wheezes, rhonchi, or rales. Abdomen: Soft, without tenderness to palpation in all 4 quadrants of the abdomen. No guarding, rebound, or rigidity. Normal bowel sounds are audible. No tenderness on palpation of McBurney's point. Negative Roland sign. Extremities: No clubbing, cyanosis, or edema. 2+ pulses in all 4 extremities. No calf tenderness on palpation. Back: No spinous process tenderness to palpation. No step-off or crepitus. No erythema or ecchymosis. The patient reports having left upper trapezius tenderness on palpation which does reproduce some of the patient's pain. No costovertebral angle tenderness to palpation. Neurologic Exam: Grossly nonfocal. Skin Exam: No rash noted. Intact skin that is warm and dry. Data Data Last Documented VS Vital Signs Date Time Temp Pulse Resp B/P (MAP) Pulse Ox O2 Delivery O2 Flow Rate FiO2 11/06/17 03:49 73 18 135/70 (91) 100 Room Air 11/06/17 01:51 97.8 Orders Orders Electrocardiogram (11/06/17 01:56) Complete Blood Count With Diff (11/06/17 01:56) Basic Metabolic Panel (Bmp) (11/06/17 01:56) Ckmb (Isoenzyme) Profile (11/06/17 01:56) Troponin I (11/06/17 01:56) Iv Access Insert/Monitor (11/06/17 01:56) Ecg Monitoring (11/06/17 01:56) Oxygen Administration (11/06/17 01:56) Oximetry (11/06/17 01:56) Chest, Pa & Lat (11/06/17 01:56) Ibuprofen (Motrin) (11/06/17 04:30) Labs Laboratory Tests Test 11/06/17 02:15 White Blood Count 6.9 TH/MM3 Red Blood Count 4.07 MIL/MM3 Hemoglobin 11.8 GM/DL Hematocrit 35.5 % Mean Corpuscular Volume 87.2 FL Mean Corpuscular Hemoglobin 28.9 PG Mean Corpuscular Hemoglobin Concent 33.2 % Red Cell Distribution Width 13.3 % Platelet Count 184 TH/MM3 Mean Platelet Volume 9.9 FL Neutrophils (%) (Auto) 55.7 % Lymphocytes (%) (Auto) 27.8 % Monocytes (%) (Auto) 10.4 % Eosinophils (%) (Auto) 5.4 % Basophils (%) (Auto) 0.7 % Neutrophils # (Auto) 3.8 TH/MM3 Lymphocytes # (Auto) 1.9 TH/MM3 Monocytes # (Auto) 0.7 TH/MM3 Eosinophils # (Auto) 0.4 TH/MM3 Basophils # (Auto) 0.0 TH/MM3 CBC Comment DIFF FINAL Differential Comment Blood Urea Nitrogen 18 MG/DL Creatinine 0.86 MG/DL Random Glucose 89 MG/DL Calcium Level 8.1 MG/DL Sodium Level 142 MEQ/L Potassium Level 3.7 MEQ/L Chloride Level 107 MEQ/L Carbon Dioxide Level 27.8 MEQ/L Anion Gap 7 MEQ/L Estimat Glomerular Filtration Rate 76 ML/MIN Total Creatine Kinase 95 U/L Troponin I LESS THAN 0.02 NG/ML MDM Medical Decision Making Medical Screen Exam Complete: Yes Emergency Medical Condition: Yes Medical Record Reviewed: Yes Differential Diagnosis Acute coronary syndrome, versus pneumothorax, versus pulmonary embolism, versus musculoskeletal strain, versus costochondritis Narrative Course During the course of the patient's emergency department visit, the patient's history, examination, and differential diagnosis were reviewed with the patient. The patient was placed on a library monitor with oximetry and frequent blood pressure monitoring. The patient had IV access obtained and blood work sent for analysis. The patient had an EKG done on arrival that shows a sinus rhythm heart rate is 65, QRS duration is 87 ms he is [address] segment elevation. The patient's well score for PE is 0 making her low risk. The patient's PERC rule is no to all questions and the role, therefore PE can be ruled out without any additional testing. The patient was initially provided ibuprofen 400 mg p.o. 1. The patient's laboratory studies were reviewed and remarkable for a white count of 6.9, hemoglobin 11.8, platelets 184 with 10.4 monocytes, basic metabolic profile is remarkable for GFR of 76, calcium 8.1, troponin I less than 0.02, CPK 95. Radiology studies were reviewed and remarkable for Last Impressions Chest X-Ray 11/06/17 0156 Signed Impressions: CONCLUSION: No acute cardiopulmonary disease identified. The patient's symptoms are most consistent with a musculoskeletal strain due to heavy lifting. The patient is instructed to avoid heavy lifting while she allows her left shoulder, left chest to heal. In the meantime, the patient is given a prescription for an anti-inflammatory pain medicine and a muscle relaxer to be taken as needed for discomfort. The patient is resting comfortably and feels better, is alert and in no distress. The patient's results and examination findings were discussed with the patient. The repeat examination is unremarkable and benign. The history, exam, diagnostic testing, and current condition do not suggest any significant pathology to warrant further testing, continued ED treatment, admission, or surgical evaluation at this point. The vital signs have been stable. The patient does not have uncontrollable pain, intractable vomiting, or other significant symptoms. The patient's condition is stable and appropriate for discharge. The patient will pursue further outpatient evaluation with a primary care physician or other designated or consulting physician as indicated in the discharge instructions. The patient is instructed to report back to the emergency department immediately for reexamination in the mean time if she develops any new or worsening signs or symptoms. The patient expressed understanding and was agreeable with this plan. Diagnosis Primary Impression: Chest pain Qualified Codes: R07.89 - Other chest pain Additional Impression: Muscle strain Referrals: Primary Care Physician 3 days Patient Instructions: Chest Wall Pain (ED), General Instructions, Muscle Strain (ED), Musculoskeletal Pain (ED) Departure Forms: Tests/Procedures Med/Other Pt SpecificInfo: Prescription(s) given Scripts Cyclobenzaprine (Flexeril) 5 Mg Tab 5 MG PO TID Y for SPASM, #15 TAB 0 Refills Prov: Phyllis Sanchez MD 11/06/[address] (EC-Naprosyn) 500 Mg Tabdr 500 MG PO BID Y for PAIN GREATER THAN 5, #10 TAB 0 Refills Prov: Phyllis Sanchez MD 11/06/17 Disposition: 01 DISCHARGE HOME Condition: Stable Phyllis Sanchez MD Nov 06, 2017 04:48
[2017-11-06] MEDS ORDERED: CYCL5TAB PO (04:54)
[2017-11-06] MEDS ORDERED: NAPR-810 PO (04:54)
--- NOTE | 2017-11-06 14:17 | EKG ---
Date Performed: 11/06/2017 Time Performed: 02:09:36 PTAGE: 32 years EKG: Sinus rhythm NORMAL ECG No significant change from prior electrocardiogram. PREVIOUS TRACING : 08/10/2016 14.15 DOCTOR: Gagandeep Devi Interpretating Date/Time 11/06/2017 14:16:54
== END 2017-11-06 05:02 | disposition home or self-care (01) ==
LOC: NEPE 01:40
DX: R07.89 Other chest pain (principal); T14.8XXA Other injury of unspecified body region, initial encounter; X58.XXXA Exposure to other specified factors, initial encounter
CPT/HCPCS: 71046; 80048; 82550; 84484; 85025; 93005; 99285